=== PATIENT | male | born 1975 | race African-American/Black ===

== ENCOUNTER 2021-07-14 13:40 | Emergency (ER) | payer MEDICAID, OTHER ==
[~2021-07-14] VITALS: Ht 185.4 cm; Wt 174.5 kg
[2021-07-14 14:45] LABS: BASOPHILS % 0.7 % (0.0-2.0); EOSINOPHILS % 0.8 % (0.0-5.0); HEMATOCRIT. 46.9 % (42.0-52.0); HEMOGLOBIN. 15.4 g/dL (14.0-18.0); LYMPHOCYTES % 18.8 % (20.0-50.0); MEAN CORPUSCULAR HEMOGLOBIN 28.2 pg (28.0-32.0); MEAN CORPUSCULAR VOLUME 85.9 fL (80.0-94.0); MONOCYTES % 3.5 % (2.0-8.0); NEUTROPHILS % 76.2 % (40.0-76.0); PLATELET 153 x1000/uL (130-400); RED BLOOD CELL COUNT 5.46 mill/uL (4.7-6.1); RED CELL DISTRIBUTION WIDTH 14.2 % (11.6-14.6)
[2021-07-14 14:51] LABS: CHLORIDE 104 mEq/L (98-107)
[2021-07-14] MEDS ORDERED: CLONIDINE 0.2MG TABLET PO ONE (16:45)
[2021-07-14 17:47] VITALS: BP 158/88
[2021-07-15] MEDS ORDERED: IBUP-2028 MT (03:25)
== END 2021-07-14 18:26 | disposition home or self-care (01) ==
LOC: ER 13:40
DX: R07.89 Other chest pain (principal); Z20.822 Contact with and (suspected) exposure to COVID-19
CPT/HCPCS: 36415; 71045; 80048; 82962; 84484; 85025; 87426; 93005; 99285

== ENCOUNTER 2021-07-15 00:17 | Emergency (ER) | payer MEDICAID ==
[~2021-07-15] VITALS: Ht 185.4 cm; Wt 174.0 kg
[2021-07-15 01:27] LABS: BASOPHILS % 0.6 % (0.0-2.0); EOSINOPHILS % 0.7 % (0.0-5.0); HEMATOCRIT. 45.4 % (42.0-52.0); LYMPHOCYTES % 24.8 % (20.0-50.0); MEAN PLATELET VOLUME 9.5 fl (7.4-10.4); MONOCYTES % 5.2 % (2.0-8.0); NEUTROPHILS % 68.7 % (40.0-76.0); PLATELET 160 x1000/uL (130-400); RED BLOOD CELL COUNT 5.34 mill/uL (4.7-6.1); RED CELL DISTRIBUTION WIDTH 14.1 % (11.6-14.6)
[2021-07-15 01:31] LABS: CHLORIDE 106 mEq/L (98-107)
[2021-07-15] MEDS ORDERED: IOHEXOL-350 100 ML BOTTLE ONE (03:03)
[2021-07-15] MEDS ORDERED: IBUP-2028 MT (03:25)
[2021-07-15 03:30] VITALS: BP 152/71
[2021-07-15] MEDS ORDERED: IBUPROFEN 400MG TABLET PO SCH (03:30)
[2021-07-19] MEDS ORDERED: MAG-55 MT (14:04)
[2021-07-20] MEDS ORDERED: AMLO10TA80 PO (12:08)
== END 2021-07-15 03:50 | disposition home or self-care (01) ==
LOC: ER 00:17
DX: I10 Essential (primary) hypertension (principal); R42 Dizziness and giddiness; R07.9 Chest pain, unspecified; Z89.022 Acquired absence of left finger(s)
CPT/HCPCS: 36415; 71275; 80053; 83880; 84484; 85025; 85379; 93005; 99285; Q9967; Z7610

== ENCOUNTER 2021-08-30 02:58 | Inpatient (IN) | payer MEDICAID ==
[~2021-08-30] VITALS: Ht 182.9 cm; Wt 169.2 kg
[~2021-08-30 02:58] MED LIST: AMLO10TA80 PO; IBUP-2028 MT; MAG-55 MT
[2021-08-30 04:38] LABS: BASOPHILS % 0.5 % (0.0-2.0); EOSINOPHILS % 1.2 % (0.0-5.0); HEMATOCRIT. 44.2 % (42.0-52.0); HEMOGLOBIN. 14.7 g/dL (14.0-18.0); LYMPHOCYTES % 19.7 % (20.0-50.0); MEAN CORPUSCULAR HEMOGLOBIN 27.3 pg (28.0-32.0); MEAN PLATELET VOLUME 10.2 fl (7.4-10.4); MONOCYTES % 5.3 % (2.0-8.0); NEUTROPHILS % 73.3 % (40.0-76.0); PLATELET 177 x1000/uL (130-400); RED BLOOD CELL COUNT 5.39 mill/uL (4.7-6.1); RED CELL DISTRIBUTION WIDTH 13.2 % (11.6-14.6)
[2021-08-30 04:51] LABS: CHLORIDE 106 mEq/L (98-107)
[2021-08-30] MEDS ORDERED: MAGNESIUM/ALUMINUM HYDROXIDE/SIMETHICONE 30ML UDC PO PRN (07:30)
[2021-08-30] MEDS ORDERED: CLONIDINE 0.1MG TABLET PO PRN (07:30)
[2021-08-30] MEDS ORDERED: ONDANSETRON HCL 4MG/2ML INJ IV PRN (07:30)
[2021-08-30] MEDS ORDERED: MORPHINE SULFATE 2 MG/ML CPJ (NOT FOR IM USE) IV PRN (07:30)
[2021-08-30] MEDS ORDERED: HYDROCODONE/ACETAMINOPHEN 5/325MG TABLET PO PRN (07:30)
[2021-08-30] MEDS ORDERED: NALOXONE HCL 0.4MG/ML VIAL IV PRN (07:30)
[2021-08-30] MEDS ORDERED: DIPHENHYDRAMINE 50MG/ML VIAL IV PRN (07:30)
[2021-08-30] MEDS ORDERED: DOCUSATE SODIUM 100MG CAPSULE PO PRN (07:30)
[2021-08-30] MEDS ORDERED: ACETAMINOPHEN 325MG TABLET PO PRN (07:30)
[2021-08-30] MEDS ORDERED: HYDRALAZINE 20MG/ML VIAL IV PRN (07:30)
[2021-08-30] MEDS ORDERED: GUAIFENESIN 200MG/10ML SUGAR FREE UDC PO PRN (07:30)
[2021-08-30] MEDS ORDERED: LORAZEPAM 2MG/ML CPJ IV PRN (07:30)
[2021-08-30] MEDS ORDERED: IPRATROPIUM/ALBUTEROL 0.5-3(2.5)MG/3ML NEB HHN PRN (07:30)
[2021-08-30] MEDS: ENOXAPARIN 40MG/0.4ML SYR SUBCUT SCH ×2 (09:17→20:09)
[2021-08-30 09:30] VITALS: BP 145/91
[2021-08-30 12:00] VITALS: BP 145/91
[2021-08-30] MEDS ORDERED: METO25TA6 PO (13:14)
[2021-08-30] MEDS ORDERED: PANT40TA51 PO (13:14)
[2021-08-30 16:00] VITALS: BP 144/90
[2021-08-30] MEDS: SODIUM CHLORIDE 0.9% INJ 3ML FLUSH IVF SCH ×2 (16:34→22:00)
[2021-08-30 16:41] LABS: CREATINE KINASE 253 IU/L (39-308)
[2021-08-30 16:43] LABS: CREATINE KINASE MB FRACTION < 1.0 ng/mL (0.5-3.6)
[2021-08-30 20:00] VITALS: BP 113/68
[2021-08-31] VITALS: BP 118/69
[2021-08-31 01:10] LABS: *AMPHETAMINES SCREEN URINE NEGATIVE (NEGATIVE); *BARBITURATES SCREEN URINE NEGATIVE (NEGATIVE); *BENZODIAZEPINES SCREEN URINE NEGATIVE (NEGATIVE); *COCAINE SCREEN URINE NEGATIVE (NEGATIVE); METHADONE URINE SCREEN NEGATIVE (NEGATIVE); OPIATES URINE SCREEN PRESUMTIVE POSITIVE (NEGATIVE)
[2021-08-31 01:11] LABS: CANNABINOID URINE SCREEN NEGATIVE (NEGATIVE); PHENCYCLIDINE URINE SCREEN NEGATIVE (NEGATIVE)
[2021-08-31 01:14] LABS: CREATINE KINASE 212 IU/L (39-308)
[2021-08-31 01:15] LABS: CREATINE KINASE MB FRACTION 1.2 ng/mL (0.5-3.6)
[2021-08-31 04:00] VITALS: BP 113/77
[2021-08-31 05:20] LABS: CHLORIDE 106 mEq/L (98-107)
[2021-08-31] MEDS: SODIUM CHLORIDE 0.9% INJ 3ML FLUSH IVF SCH (05:26)
[2021-08-31 06:20] LABS: BASOPHILS % 0.4 % (0.0-2.0); EOSINOPHILS % 1.7 % (0.0-5.0); HEMATOCRIT. 46.2 % (42.0-52.0); HEMOGLOBIN. 15.2 g/dL (14.0-18.0); LYMPHOCYTES % 32.6 % (20.0-50.0); MEAN CORPUSCULAR HEMOGLOBIN 27.5 pg (28.0-32.0); MEAN CORPUSCULAR VOLUME 83.5 fL (80.0-94.0); MEAN PLATELET VOLUME 10.2 fl (7.4-10.4); MONOCYTES % 5.5 % (2.0-8.0); NEUTROPHILS % 59.8 % (40.0-76.0); PLATELET 167 x1000/uL (130-400); RED BLOOD CELL COUNT 5.53 mill/uL (4.7-6.1); RED CELL DISTRIBUTION WIDTH 13.3 % (11.6-14.6)
[2021-08-31 08:00] VITALS: BP 148/78
[2021-08-31] MEDS: ENOXAPARIN 40MG/0.4ML SYR SUBCUT SCH (08:18)
[2021-08-31 11:08] VITALS: BP 148/78
== END 2021-08-31 11:40 | disposition home or self-care (01) | DRG 241 ==
LOC: ER 02:58 → 7EST 05:38 → EDBEDREQ 05:44 → ENRESERV 07:22 → CANRESERV 07:22 → ENRESERV 08:54
PROVIDERS: ADMIT Internal Medicine; ATTEND Internal Medicine
DX: K29.70 Gastritis, unspecified, without bleeding (principal); R65.10 Systemic inflammatory response syndrome (SIRS) of non-infectious origin without acute organ dysfunction; D64.9 Anemia, unspecified; I10 Essential (primary) hypertension; E66.01 Morbid (severe) obesity due to excess calories; Z68.43 Body mass index [BMI] 50.0-59.9, adult; Z79.899 Other long term (current) drug therapy
CPT/HCPCS: 36415; 71045; 80053; 80305; 82550; 82553; 84443; 84484; 85025; 85379; 93005; 93970; 99285; J0360; J1650; J2060; J2270

== ENCOUNTER 2021-09-05 00:48 | Emergency (ER) | payer MEDICAID ==
[~2021-09-05] VITALS: Ht 185.4 cm; Wt 168.0 kg
[~2021-09-05 00:48] MED LIST changes: -IBUP-2028 MT; +METO25TA6 PO; +PANT40TA51 PO
[2021-09-05 00:52] VITALS: BP 156/99
[2021-09-05] MEDS ORDERED: PANTOPRAZOLE SODIUM 40 MG/VIAL IV STA (02:53)
[2021-09-05] MEDS ORDERED: METOCLOPRAMIDE HCL 10MG/2ML VIAL IV STA (02:53)
[2021-09-05] MEDS ORDERED: ASPIRIN 81MG TABLET PO ONE (03:00)
[2021-09-05] MEDS ORDERED: NITROGLYCERIN 0.4MG TABLET SL SL PRN (03:00)
[2021-09-05] MEDS ORDERED: METO-293 MT (04:13)
== END 2021-09-05 04:27 | disposition home or self-care (01) ==
LOC: ER 00:48
DX: K21.9 Gastro-esophageal reflux disease without esophagitis (principal); F12.10 Cannabis abuse, uncomplicated; I10 Essential (primary) hypertension; Z79.899 Other long term (current) drug therapy
CPT/HCPCS: 93005; 96374; 96375; 99284; C9113; J2765

== ENCOUNTER 2022-02-15 13:42 | Emergency (ER) | payer MEDICAID ==
[~2022-02-15] VITALS: Ht 185.4 cm; Wt 170.0 kg
[~2022-02-15 13:42] MED LIST changes: +METO-293 MT
[2022-02-15 17:03] VITALS: BP 149/93
[2022-02-15 17:05] LABS: BASOPHILS % 0.4 % (0.0-2.0); EOSINOPHILS % 0.6 % (0.0-5.0); HEMATOCRIT. 44.6 % (42.0-52.0); LYMPHOCYTES % 18.6 % (20.0-50.0); MEAN CORPUSCULAR HEMOGLOBIN 26.8 pg (28.0-32.0); MEAN CORPUSCULAR VOLUME 79.8 fL (80.0-94.0); MEAN PLATELET VOLUME 9.8 fl (7.4-10.4); MONOCYTES % 4.4 % (2.0-8.0); PLATELET 172 x1000/uL (130-400); RED BLOOD CELL COUNT 5.59 mill/uL (4.7-6.1); RED CELL DISTRIBUTION WIDTH 13.5 % (11.6-14.6)
[2022-02-15 17:13] LABS: CHLORIDE 107 mEq/L (98-107)
[2022-02-15] MEDS ORDERED: METOCLOPRAMIDE HCL 10MG/2ML VIAL IV STA (17:35)
[2022-02-15] MEDS ORDERED: PANTOPRAZOLE SODIUM 40 MG/VIAL IV STA (17:35)
[2022-02-15] MEDS ORDERED: VISCOUS LIDOCAINE 2% 15 ML UDC PO STA (17:35)
[2022-02-15] MEDS ORDERED: MAGNESIUM/ALUMINUM HYDROXIDE/SIMETHICONE 30ML UDC PO STA (17:35)
[2022-02-15] MEDS ORDERED: SODIUM CHLORIDE 0.9% 1,000 ML IV ONE (17:45)
[2022-02-15 19:15] LABS: *AMPHETAMINES SCREEN URINE NEGATIVE (NEGATIVE); *BARBITURATES SCREEN URINE NEGATIVE (NEGATIVE); *BENZODIAZEPINES SCREEN URINE NEGATIVE (NEGATIVE); *COCAINE SCREEN URINE NEGATIVE (NEGATIVE); CANNABINOID URINE SCREEN NEGATIVE (NEGATIVE); METHADONE URINE SCREEN NEGATIVE (NEGATIVE); OPIATES URINE SCREEN NEGATIVE (NEGATIVE); PHENCYCLIDINE URINE SCREEN NEGATIVE (NEGATIVE)
[2022-02-15] MEDS ORDERED: METO-293 MT (21:48)
[2022-02-15] MEDS ORDERED: PROT40 MT (21:48)
== END 2022-02-15 22:02 | disposition home or self-care (01) ==
LOC: ER 13:42
DX: R07.9 Chest pain, unspecified (principal); R10.9 Unspecified abdominal pain; E11.9 Type 2 diabetes mellitus without complications; I10 Essential (primary) hypertension; Z89.022 Acquired absence of left finger(s); Z98.890 Other specified postprocedural states
CPT/HCPCS: 36415; 71045; 73030; 80053; 80305; 83880; 84484; 85025; 93005; 96361; 96374; 96375; 99285; C9113; J2765; J7030

== ENCOUNTER 2024-11-11 12:55 | Emergency (ER) | payer MEDICAID ==
[~2024-11-11] VITALS: Ht 185.4 cm; Wt 151.6 kg
[~2024-11-11 12:55] MED LIST changes: +PROT40 MT
[2024-11-11 12:57] VITALS: BP 168/108; PULSE 100; RESP 16; TEMP 98.4; O2SAT 100
[2024-11-11] MEDS ORDERED: ACETAMINOPHEN 325MG TABLET PO ONE (13:45)
[2024-11-11] MEDS ORDERED: IBUPROFEN 800MG TABLET PO ONE (13:45)
[2024-11-11] MEDS ORDERED: GABA-1180 MT (16:14)
[2024-11-11] MEDS ORDERED: IBUP-1525 MT (16:14)
[2024-11-11] MEDS ORDERED: TOPUD MT (16:14)
[2024-11-11] MEDS ORDERED: IBUPROFEN 800MG TABLET PO NR (16:45)
[2024-11-11] MEDS: ACETAMINOPHEN 325MG TABLET PO NR (16:52)
[2024-11-11] MEDS: IBUPROFEN 400MG TABLET PO NR (16:52)
== END 2024-11-11 16:45 | disposition home or self-care (01) ==
LOC: ER 12:55
DX: I10 Essential (primary) hypertension (principal); E11.40 Type 2 diabetes mellitus with diabetic neuropathy, unspecified; Z79.899 Other long term (current) drug therapy; F10.90 Alcohol use, unspecified, uncomplicated; F12.90 Cannabis use, unspecified, uncomplicated; Y90.9 Presence of alcohol in blood, level not specified
CPT/HCPCS: 73630; 99283